=== PATIENT | female | born 1975 | race Caucasian/White ===

== ENCOUNTER 2018-01-11 14:07 | Emergency (ER) | payer BC, MEDICAID ==
[~2018-01-11] VITALS: Ht 152.4 cm; Wt 81.0 kg
[~2018-01-11 14:07] MED LIST: ESCI20TA29 PO; MUPI15CR TP; NORCO10T PO; QUET-1 PO; [UNRECOGNIZED DRUG - CODE] PO
[2018-01-11] MEDS ORDERED: CLIN150C2 PO (14:51)
[2018-01-11 18:04] VITALS: BP 131/81
== END 2018-01-11 15:20 | disposition home or self-care (01) ==
LOC: ER 14:07
DX: K11.20 Sialoadenitis, unspecified (principal); Z88.0 Allergy status to penicillin; Z88.5 Allergy status to narcotic agent; Z79.899 Other long term (current) drug therapy
CPT/HCPCS: 99283

== ENCOUNTER 2020-12-08 12:39 | Emergency (ER) | payer OTHER, BC, MEDICAID ==
[~2020-12-08] VITALS: Ht 152.4 cm; Wt 82.5 kg
[2020-12-08 13:16] VITALS: BP 141/83
[2020-12-08] MEDS ORDERED: orphenadrine citrate 60mg/2ml inj. IM ONE (13:40)
[2020-12-08] MEDS ORDERED: ketorolac tromethamine 15mg/ml inj. IM ONE (13:40)
[2020-12-08] MEDS ORDERED: NAPR-56 PO (14:40)
[2020-12-08] MEDS ORDERED: METH-360 PO (14:40)
== END 2020-12-08 15:26 | disposition home or self-care (01) ==
LOC: ER 12:39
DX: S16.1XXA Strain of muscle, fascia and tendon at neck level, initial encounter (principal); S39.012A Strain of muscle, fascia and tendon of lower back, initial encounter; M25.551 Pain in right hip; Z88.0 Allergy status to penicillin; Z88.5 Allergy status to narcotic agent; Z79.2 Long term (current) use of antibiotics; Z79.899 Other long term (current) drug therapy; V89.2XXA Person injured in unspecified motor-vehicle accident, traffic, initial encounter; Y93.89 Activity, other specified; Y92.89 Other specified places as the place of occurrence of the external cause; Y99.8 Other external cause status
CPT/HCPCS: 72040; 96372; 99284; J1885; J2360

== ENCOUNTER 2021-10-25 12:06 | Emergency (ER) | payer BC, MEDICAID ==
[~2021-10-25] VITALS: Ht 152.4 cm; Wt 79.5 kg
[~2021-10-25 12:06] MED LIST changes: +METH-360 PO
[2021-10-25 12:36] VITALS: BP 106/70
[2021-10-25 13:18] LABS: BASOPHILS % (AUTO) 0.8 % (0-1); EOSINOPHILS # (AUTO) 0.1 X10'3 (0-0.9); EOSINOPHILS % (AUTO) 1.4 % (0-6); HEMATOCRIT 43.1 % (35.0-45.0); HEMOGLOBIN 14.4 g/dl (12.0-16.0); LYMPHOCYTES % (AUTO) 33.3 % (21-51); MEAN CORPUSCULAR HEMOGLOBIN 30.5 PG (27.0-31.0); MEAN CORPUSCULAR HGB CONC 33.5 g/dL (33.0-36.5); MEAN CORPUSCULAR VOLUME 91.2 FL (78-98); MEAN PLATELET VOLUME 8.2 FL (7.4-10.4); MONOCYTES # (AUTO) 0.4 X10'3 (0-0.9); MONOCYTES % (AUTO) 7.2 % (2-12); NEUTROPHILS # (AUTO) 3.4 X10'3 (1.8-7.7); NEUTROPHILS % (AUTO) 57.3 % (42-75); PLATELET COUNT 276 X10'3 (140-440); RED BLOOD COUNT 4.73 X10'6 (4.20-5.60); RED CELL DISTRIBUTION WIDTH 12.8 % (11.5-14.5); WHITE BLOOD COUNT 5.9 X10'3 (4.5-11.0)
[2021-10-25 15:00] LABS: ALANINE AMINOTRANSFERASE 19 U/L (12-78); ALBUMIN 3.4 G/DL (3.4-5.0); ALBUMIN/GLOBULIN RATIO 0.9 (1.1-1.5); ALKALINE PHOSPHATASE 79 IU/L (46-116); ANION GAP 15 (8-16); ASPARTATE AMINO TRANSFERASE 15 U/L (10-37); BILIRUBIN,TOTAL 0.6 MG/DL (0.1-1.0); BLOOD UREA NITROGEN 18 MG/DL (7-18); BUN/CREATININE RATIO 19.6 (6.6-38.0); CALCIUM 8.9 MG/DL (8.5-10.1); CHLORIDE 106 MMOL/L (99-107); CREATININE 0.92 MG/DL (0.40-0.90); GLUCOSE 93 MG/DL (70-104); SODIUM 141 MMOL/L (135-145); TOTAL CARBON DIOXIDE 20.3 MMOL/L (24-32); TOTAL PROTEIN 7.1 G/DL (6.4-8.2); eGFR 66 ML/MIN
[2021-10-25 15:09] LABS: C-REACTIVE PROTEIN 0.38 MG/DL (0.0-0.5)
[2021-10-25] MEDS ORDERED: PRED10TA23 PO (16:52)
[2021-10-25] MEDS ORDERED: ketorolac trometh inj. 60 MG/2 ML VIAL IM ONE (16:55)
[2021-10-25] MEDS ORDERED: predniSONE 20 mg tablet PO ONE (16:55)
== END 2021-10-25 17:01 | disposition home or self-care (01) ==
LOC: ER 12:11
DX: M25.50 Pain in unspecified joint (principal); Z88.0 Allergy status to penicillin; Z88.5 Allergy status to narcotic agent; Z79.899 Other long term (current) drug therapy
CPT/HCPCS: 36415; 80053; 84443; 84550; 85025; 85651; 86140; 96372; 99283; J1885; J7512

== ENCOUNTER 2021-11-14 14:59 | Inpatient (IN) | payer BC, MEDICAID ==
[~2021-11-14] VITALS: Ht 152.4 cm; Wt 84.3 kg
[~2021-11-14 14:59] MED LIST changes: +PRED10TA23 PO
[2021-11-14 15:58] LABS: BASOPHILS # (AUTO) 0.1 X10'3 (0-0.2); BASOPHILS % (AUTO) 0.8 % (0-1); EOSINOPHILS # (AUTO) 0.1 X10'3 (0-0.9); EOSINOPHILS % (AUTO) 2.2 % (0-6); LYMPHOCYTES # (AUTO) 1.7 X10'3 (1.1-4.8); LYMPHOCYTES % (AUTO) 27.3 % (21-51); MEAN CORPUSCULAR HEMOGLOBIN 30.8 PG (27.0-31.0); MEAN CORPUSCULAR HGB CONC 33.4 g/dL (33.0-36.5); MEAN CORPUSCULAR VOLUME 92.1 FL (78-98); MEAN PLATELET VOLUME 7.5 FL (7.4-10.4); MONOCYTES # (AUTO) 0.5 X10'3 (0-0.9); MONOCYTES % (AUTO) 7.8 % (2-12); NEUTROPHILS % (AUTO) 61.9 % (42-75); PLATELET COUNT 232 X10'3 (140-440); RED BLOOD COUNT 4.56 X10'6 (4.20-5.60); RED CELL DISTRIBUTION WIDTH 13.6 % (11.5-14.5); WHITE BLOOD COUNT 6.4 X10'3 (4.5-11.0)
[2021-11-14 16:18] LABS: ALANINE AMINOTRANSFERASE 30 U/L (12-78); ALBUMIN 3.2 G/DL (3.4-5.0); ALBUMIN/GLOBULIN RATIO 0.9 (1.1-1.5); ALKALINE PHOSPHATASE 76 IU/L (46-116); ANION GAP 13 (8-16); ASPARTATE AMINO TRANSFERASE 15 U/L (10-37); BILIRUBIN,TOTAL 0.6 MG/DL (0.1-1.0); BLOOD UREA NITROGEN 27 MG/DL (7-18); CALCIUM 8.5 MG/DL (8.5-10.1); CHLORIDE 107 MMOL/L (99-107); CREATININE 0.87 MG/DL (0.40-0.90); D-DIMER 4.85 MG/L FEU (0-0.50); GLUCOSE 119 MG/DL (70-104); POTASSIUM 3.7 MMOL/L (3.5-5.1); SODIUM 142 MMOL/L (135-145); TOTAL PROTEIN 6.7 G/DL (6.4-8.2); eGFR 70 ML/MIN
[2021-11-14] MEDS ORDERED: iohexol 350MG/ML 100ml bottle IV ONE (17:49)
[2021-11-14] MEDS ORDERED: enoxaparin 100mg/ml syringe SUBCUT ONE (19:20)
[2021-11-14] MEDS ORDERED: ondansetron 4mg rapidly disintigrating tab PO PRN (19:45)
[2021-11-14] MEDS ORDERED: acetaminophen 650mg rectal suppository RC PRN (19:45)
[2021-11-14] MEDS ORDERED: diphenhydrAMINE 25mg capsule PO PRN (19:45)
[2021-11-14] MEDS ORDERED: bisacodyl 10mg suppository rectal RC PRN (19:45)
[2021-11-14] MEDS ORDERED: diphenhydrAMINE 50 mg/ml inj IV PRN (19:45)
[2021-11-14] MEDS ORDERED: ondansetron/PF 4mg/2ml inj IV PRN (19:45)
[2021-11-14] MEDS ORDERED: magnesium hydroxide 30ml (MOM) UD suspension PO PRN (19:45)
[2021-11-14] MEDS ORDERED: mag hydrox/Alum hydrox/simeth 30ml oral suspension PO PRN (19:45)
[2021-11-14] MEDS: docusate sod 100mg capsule PO SCH (20:00)
[2021-11-14] MEDS ORDERED: VARE1TAB24 PO (20:07)
[2021-11-14] MEDS ORDERED: CYCL-1 PO (20:07)
[2021-11-14] MEDS ORDERED: CITA40TA30 PO (20:07)
[2021-11-14] MEDS ORDERED: PANT40TA54 PO (20:07)
[2021-11-14] MEDS ORDERED: PRAZ5CAP2 PO (20:07)
[2021-11-14] MEDS ORDERED: LEVO1TBD13 PO (20:07)
[2021-11-14 20:10] LABS: HEMOGLOBIN A1C 5.9 % (4.5-6.2)
[2021-11-14 20:32] LABS: MAGNESIUM 2.2 MG/DL (1.5-2.4); PHOSPHORUS 2.5 MG/DL (2.3-4.5)
[2021-11-14] MEDS ORDERED: temazepam 15mg capsule PO PRN (21:00)
[2021-11-14] MEDS: normal saline 1000ml 1,000 ML IV SCH (23:52)
[2021-11-14] MEDS: cyclobenzaprine 10mg tablet PO SCH (23:52)
[2021-11-14] MEDS: enoxaparin 80mg/0.8ml syringe SUBCUT SCH (23:58)
[2021-11-15 00:45] LABS: URINE AMPHETAMINE SCREEN NEGATIVE (Neg); URINE BARBITUATE SCREEN NEGATIVE (Neg); URINE BENZODIAZEPINES SCREEN NEGATIVE (Neg); URINE CANNABINOID SCREEN POSITIVE (Neg); URINE COCAINE SCREEN NEGATIVE (Neg); URINE METHADONE SCREEN NEGATIVE (Neg); URINE OPIATE SCREEN NEGATIVE (Neg); URINE PHENCYCLIDINE SCREEN NEGATIVE (Neg)
[2021-11-15] MEDS ORDERED: HYDROcodone/acetaminophen 5mg/325mg tablet PO ONE (02:30)
[2021-11-15] MEDS: normal saline 1000ml 1,000 ML IV SCH ×2 (05:45→15:45)
[2021-11-15] MEDS ORDERED: pantoprazole 40mg Tablet.DR PO SCH (07:30)
[2021-11-15] MEDS: pantoprazole 40mg Tablet.DR PO SCH ×2 (08:00→20:02)
[2021-11-15] MEDS: prazosin 5mg capsule PO SCH ×2 (08:00→20:02)
[2021-11-15] MEDS ORDERED: varenicline tartrate 1mg tablet PO SCH (08:00)
[2021-11-15] MEDS: docusate sod 100mg capsule PO SCH ×2 (08:24→20:00)
[2021-11-15] MEDS: cyclobenzaprine 10mg tablet PO SCH ×3 (08:24→20:02)
[2021-11-15] MEDS: citalopram 20mg tablet PO SCH (08:24)
[2021-11-15] MEDS: enoxaparin 80mg/0.8ml syringe SUBCUT SCH ×2 (08:24→20:03)
[2021-11-15 08:27] LABS: BASOPHILS # (AUTO) 0.1 X10'3 (0-0.2); BASOPHILS % (AUTO) 1.1 % (0-1); EOSINOPHILS # (AUTO) 0.1 X10'3 (0-0.9); EOSINOPHILS % (AUTO) 2.4 % (0-6); HEMATOCRIT 41.7 % (35.0-45.0); HEMOGLOBIN 13.7 g/dl (12.0-16.0); LYMPHOCYTES # (AUTO) 2.2 X10'3 (1.1-4.8); LYMPHOCYTES % (AUTO) 39.2 % (21-51); MEAN CORPUSCULAR HEMOGLOBIN 30.9 PG (27.0-31.0); MEAN CORPUSCULAR HGB CONC 32.8 g/dL (33.0-36.5); MEAN CORPUSCULAR VOLUME 94.2 FL (78-98); MEAN PLATELET VOLUME 7.6 FL (7.4-10.4); MONOCYTES # (AUTO) 0.6 X10'3 (0-0.9); MONOCYTES % (AUTO) 10.5 % (2-12); NEUTROPHILS # (AUTO) 2.6 X10'3 (1.8-7.7); NEUTROPHILS % (AUTO) 46.8 % (42-75); PLATELET COUNT 186 X10'3 (140-440); RED BLOOD COUNT 4.43 X10'6 (4.20-5.60); WHITE BLOOD COUNT 5.5 X10'3 (4.5-11.0)
[2021-11-15] MEDS ORDERED: nicotine 14mg patch - 24hr TD ONE (08:35)
[2021-11-15 09:33] LABS: ALBUMIN 2.8 G/DL (3.4-5.0); ALBUMIN/GLOBULIN RATIO 0.8 (1.1-1.5); ALKALINE PHOSPHATASE 67 IU/L (46-116); ANION GAP 11 (8-16); ASPARTATE AMINO TRANSFERASE 18 U/L (10-37); BILIRUBIN,TOTAL 0.8 MG/DL (0.1-1.0); BLOOD UREA NITROGEN 21 MG/DL (7-18); BUN/CREATININE RATIO 28.8 (6.6-38.0); CALCIUM 8.3 MG/DL (8.5-10.1); CHLORIDE 108 MMOL/L (99-107); CHOL/HDL RATIO 4.9 (0.00-4.99); CHOLESTEROL 222 MG/DL (0-200); CREATININE 0.73 MG/DL (0.40-0.90); GLUCOSE 82 MG/DL (70-104); HDL CHOLESTEROL 45 MG/DL (35-60); LDL CHOLESTEROL 130 MG/DL (50-100); POTASSIUM 3.9 MMOL/L (3.5-5.1); SODIUM 140 MMOL/L (135-145); TOTAL CARBON DIOXIDE 20.6 MMOL/L (24-32); TOTAL PROTEIN 6.1 G/DL (6.4-8.2); TRIGLYCERIDES 240 MG/DL (20-135); eGFR 86 ML/MIN
[2021-11-15 13:15] VITALS: BP 107/66
[2021-11-15 13:53] LABS: ALANINE AMINOTRANSFERASE 22 U/L (12-78)
[2021-11-15] MEDS: acetaminophen 325mg tablet PO PRN (14:40)
[2021-11-15] MEDS: HYDROmorphone inj. 0.5 MG/0.5 ML DISP.SYRIN IV PRN ×2 (14:42→22:44)
[2021-11-15 15:00] VITALS: BP 117/63
[2021-11-15 18:00] VITALS: BP 127/80
--- NOTE | 2021-11-15 18:32 | NUR ---
Problems reprioritized. Patient report given Cristian RN, questions answered & plan of care reviewed with Cristian ARCHER.
[2021-11-15 22:00] VITALS: BP 135/74
[2021-11-16] MEDS: normal saline 1000ml 1,000 ML IV SCH ×2 (01:38→09:37)
[2021-11-16 02:00] VITALS: BP 103/55
[2021-11-16 06:00] VITALS: BP 153/55
[2021-11-16] MEDS: prazosin 5mg capsule PO SCH (08:00)
[2021-11-16] MEDS: docusate sod 100mg capsule PO SCH (08:00)
[2021-11-16] MEDS ORDERED: nicotine 14mg patch - 24hr TD SCH (08:00)
[2021-11-16] MEDS: cyclobenzaprine 10mg tablet PO SCH ×2 (08:05→13:33)
[2021-11-16] MEDS: enoxaparin 80mg/0.8ml syringe SUBCUT SCH (08:05)
[2021-11-16] MEDS: pantoprazole 40mg Tablet.DR PO SCH (08:05)
[2021-11-16] MEDS: citalopram 20mg tablet PO SCH (08:05)
[2021-11-16 08:09] LABS: BASOPHILS % (AUTO) 0.7 % (0-1); EOSINOPHILS # (AUTO) 0.1 X10'3 (0-0.9); EOSINOPHILS % (AUTO) 3.1 % (0-6); HEMATOCRIT 37.7 % (35.0-45.0); HEMOGLOBIN 12.7 g/dl (12.0-16.0); LYMPHOCYTES # (AUTO) 1.6 X10'3 (1.1-4.8); LYMPHOCYTES % (AUTO) 37.1 % (21-51); MEAN CORPUSCULAR HEMOGLOBIN 31.1 PG (27.0-31.0); MEAN CORPUSCULAR HGB CONC 33.8 g/dL (33.0-36.5); MEAN CORPUSCULAR VOLUME 92.1 FL (78-98); MONOCYTES # (AUTO) 0.4 X10'3 (0-0.9); MONOCYTES % (AUTO) 10.1 % (2-12); NEUTROPHILS # (AUTO) 2.1 X10'3 (1.8-7.7); PLATELET COUNT 186 X10'3 (140-440); RED BLOOD COUNT 4.09 X10'6 (4.20-5.60); RED CELL DISTRIBUTION WIDTH 13.1 % (11.5-14.5); WHITE BLOOD COUNT 4.2 X10'3 (4.5-11.0)
[2021-11-16 08:22] LABS: ALANINE AMINOTRANSFERASE 22 U/L (12-78); ALBUMIN 2.6 G/DL (3.4-5.0); ALBUMIN/GLOBULIN RATIO 0.8 (1.1-1.5); ALKALINE PHOSPHATASE 65 IU/L (46-116); ANION GAP 9 (8-16); ASPARTATE AMINO TRANSFERASE 17 U/L (10-37); BILIRUBIN,TOTAL 1.3 MG/DL (0.1-1.0); BLOOD UREA NITROGEN 15 MG/DL (7-18); BUN/CREATININE RATIO 20.8 (6.6-38.0); CALCIUM 8.2 MG/DL (8.5-10.1); CHLORIDE 112 MMOL/L (99-107); CREATININE 0.72 MG/DL (0.40-0.90); GLUCOSE 99 MG/DL (70-104); POTASSIUM 3.8 MMOL/L (3.5-5.1); SODIUM 143 MMOL/L (135-145); TOTAL CARBON DIOXIDE 21.7 MMOL/L (24-32); TOTAL PROTEIN 5.9 G/DL (6.4-8.2); eGFR 87 ML/MIN
[2021-11-16] MEDS ORDERED: prazosin 5mg capsule PO SCH (10:50)
[2021-11-16 11:00] VITALS: BP 119/77
[2021-11-16] MEDS ORDERED: APIX5TAB3 PO (12:16)
[2021-11-16] MEDS: acetaminophen 325mg tablet PO PRN (13:37)
--- NOTE | 2021-11-16 16:11 | NUR ---
Patient received at 1300 and d/c to go home with d/c instructions/directions printed and verbally given to patient. She verbalizes understanding and denied having any question for science writer. Patient had removed IV line and cardiac monitor technician prior to d/c. 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 She was medicated for headache with good result prior to d/c. Patient was accompanied to the lobby via wheel chair by PCT with all her belongings with no distress noted.
== END 2021-11-16 15:29 | disposition home or self-care (01) | DRG 299 ==
LOC: ER 15:00 → ED HOLD 19:51 → PCU 3S 11-15 12:46
PROVIDERS: ADMIT Family Medicine; ATTEND Family Medicine
PROC: B32T1ZZ Computerized Tomography (CT Scan) of Left Pulmonary Artery using Low Osmolar Contrast (ICD-10-PCS; principal; 2021-11-14)
PROC: B3201ZZ Computerized Tomography (CT Scan) of Thoracic Aorta using Low Osmolar Contrast (ICD-10-PCS; 2021-11-14)
PROC: B32S1ZZ Computerized Tomography (CT Scan) of Right Pulmonary Artery using Low Osmolar Contrast (ICD-10-PCS; 2021-11-14)
DX: I82.441 Acute embolism and thrombosis of right tibial vein (principal); I26.93 Single subsegmental thrombotic pulmonary embolism without acute cor pulmonale; E87.3 Alkalosis; N17.9 Acute kidney failure, unspecified; E78.5 Hyperlipidemia, unspecified; R00.0 Tachycardia, unspecified; R06.82 Tachypnea, not elsewhere classified; R26.2 Difficulty in walking, not elsewhere classified; F12.10 Cannabis abuse, uncomplicated; M25.50 Pain in unspecified joint; G89.4 Chronic pain syndrome; I10 Essential (primary) hypertension; Z79.891 Long term (current) use of opiate analgesic; Z83.2 Family history of diseases of the blood and blood-forming organs and certain disorders involving the immune mechanism; Z87.891 Personal history of nicotine dependence; Z98.82 Breast implant status; Z88.0 Allergy status to penicillin; Z88.5 Allergy status to narcotic agent; Z79.899 Other long term (current) drug therapy; Z71.51 Drug abuse counseling and surveillance of drug abuser
CPT/HCPCS: 36415; 71275; 80053; 80061; 80305; 83036; 83735; 83880; 84100; 85025; 85379; 85610; 87081; 93306; 93970; 99285; G0378; J1170; J1650; J7030; Q9967

== ENCOUNTER 2021-11-28 18:37 | Emergency (ER) | payer BC, MEDICAID ==
[~2021-11-28] VITALS: Ht 152.4 cm; Wt 84.0 kg
[~2021-11-28 18:37] MED LIST changes: +APIX5TAB3 PO; +CITA40TA30 PO; +CYCL-1 PO; -ESCI20TA29 PO; -METH-360 PO; -MUPI15CR TP; -NORCO10T PO; +PANT40TA54 PO; +PRAZ5CAP2 PO; -PRED10TA23 PO; -QUET-1 PO; +VARE1TAB24 PO; -[UNRECOGNIZED DRUG - CODE] PO
[2021-11-28 22:32] LABS: MEAN PLATELET VOLUME 7.6 FL (7.4-10.4)
[2021-11-28 22:34] LABS: BASOPHILS % (AUTO) 0.6 % (0-1); EOSINOPHILS # (AUTO) 0.1 X10'3 (0-0.9); EOSINOPHILS % (AUTO) 2.2 % (0-6); HEMATOCRIT 39.4 % (35.0-45.0); HEMOGLOBIN 13.4 g/dl (12.0-16.0); LYMPHOCYTES % (AUTO) 36.9 % (21-51); MEAN CORPUSCULAR HEMOGLOBIN 30.8 PG (27.0-31.0); MEAN CORPUSCULAR HGB CONC 34.1 g/dL (33.0-36.5); MEAN CORPUSCULAR VOLUME 90.4 FL (78-98); MONOCYTES # (AUTO) 0.5 X10'3 (0-0.9); MONOCYTES % (AUTO) 8.6 % (2-12); NEUTROPHILS # (AUTO) 2.8 X10'3 (1.8-7.7); NEUTROPHILS % (AUTO) 51.7 % (42-75); PLATELET COUNT 319 X10'3 (140-440); RED BLOOD COUNT 4.36 X10'6 (4.20-5.60); RED CELL DISTRIBUTION WIDTH 13.1 % (11.5-14.5); WHITE BLOOD COUNT 5.5 X10'3 (4.5-11.0)
[2021-11-28 22:45] LABS: ALANINE AMINOTRANSFERASE 61 U/L (12-78); ALBUMIN 3.8 G/DL (3.4-5.0); ALBUMIN/GLOBULIN RATIO 1.2 (1.1-1.5); ALKALINE PHOSPHATASE 84 IU/L (46-116); ANION GAP 8 (8-16); ASPARTATE AMINO TRANSFERASE 30 U/L (10-37); BILIRUBIN,TOTAL 0.5 MG/DL (0.1-1.0); BLOOD UREA NITROGEN 11 MG/DL (7-18); BUN/CREATININE RATIO 13.1 (6.6-38.0); CALCIUM 9.1 MG/DL (8.5-10.1); CHLORIDE 105 MMOL/L (99-107); CREATININE 0.84 MG/DL (0.40-0.90); GLUCOSE 105 MG/DL (70-104); POTASSIUM 3.8 MMOL/L (3.5-5.1); SODIUM 140 MMOL/L (135-145); TOTAL CARBON DIOXIDE 26.6 MMOL/L (24-32); TOTAL PROTEIN 7.1 G/DL (6.4-8.2); eGFR 73 ML/MIN
[2021-11-29 01:40] VITALS: BP 137/90
== END 2021-11-29 02:28 | disposition home or self-care (01) ==
LOC: ER 18:39
DX: R06.02 Shortness of breath (principal); I26.99 Other pulmonary embolism without acute cor pulmonale; I82.401 Acute embolism and thrombosis of unspecified deep veins of right lower extremity; F17.200 Nicotine dependence, unspecified, uncomplicated; Z88.0 Allergy status to penicillin; Z88.5 Allergy status to narcotic agent; Z79.899 Other long term (current) drug therapy
CPT/HCPCS: 36415; 71045; 80053; 83880; 84484; 85025; 93005; 99285

== ENCOUNTER 2022-04-05 15:19 | Emergency (ER) | payer BC, MEDICAID ==
[~2022-04-05] VITALS: Ht 152.4 cm; Wt 84.1 kg
[2022-04-05 16:51] LABS: BASOPHILS % (AUTO) 0.4 % (0-1); EOSINOPHILS % (AUTO) 0.8 % (0-6); HEMATOCRIT 42.6 % (35.0-45.0); HEMOGLOBIN 14.3 g/dl (12.0-16.0); LYMPHOCYTES # (AUTO) 1.7 X10'3 (1.1-4.8); LYMPHOCYTES % (AUTO) 27.6 % (21-51); MEAN CORPUSCULAR HEMOGLOBIN 30.6 PG (27.0-31.0); MEAN CORPUSCULAR HGB CONC 33.5 g/dL (33.0-36.5); MEAN CORPUSCULAR VOLUME 91.2 FL (78-98); MEAN PLATELET VOLUME 9.5 FL (7.4-10.4); MONOCYTES # (AUTO) 0.6 X10'3 (0-0.9); MONOCYTES % (AUTO) 9.6 % (2-12); NEUTROPHILS # (AUTO) 3.7 X10'3 (1.8-7.7); NEUTROPHILS % (AUTO) 61.6 % (42-75); PLATELET COUNT 215 X10'3 (140-440); RED BLOOD COUNT 4.67 X10'6 (4.20-5.60); RED CELL DISTRIBUTION WIDTH 13.5 % (11.5-14.5); WHITE BLOOD COUNT 6.1 X10'3 (4.5-11.0)
[2022-04-05 17:09] LABS: ALANINE AMINOTRANSFERASE 39 U/L (12-78); ALBUMIN 3.9 G/DL (3.4-5.0); ALBUMIN/GLOBULIN RATIO 1.2 (1.1-1.5); ANION GAP 8 (8-16); ASPARTATE AMINO TRANSFERASE 23 U/L (10-37); BILIRUBIN,TOTAL 0.6 MG/DL (0.1-1.0); BLOOD UREA NITROGEN 17 MG/DL (7-18); BUN/CREATININE RATIO 17.7 (6.6-38.0); CALCIUM 9.4 MG/DL (8.5-10.1); CHLORIDE 106 MMOL/L (99-107); CREATININE 0.96 MG/DL (0.40-0.90); GLUCOSE 96 MG/DL (70-104); POTASSIUM 4.1 MMOL/L (3.5-5.1); SODIUM 141 MMOL/L (135-145); TOTAL CARBON DIOXIDE 26.9 MMOL/L (24-32); TOTAL PROTEIN 7.2 G/DL (6.4-8.2); eGFR 62 ML/MIN
[2022-04-05 17:10] LABS: ALKALINE PHOSPHATASE 94 IU/L (46-116)
[2022-04-05] MEDS ORDERED: LIDOcaine 5% patch TP STA (18:59)
[2022-04-05] MEDS ORDERED: orphenadrine citrate 60mg/2ml inj. IM ONE (19:00)
[2022-04-05] MEDS ORDERED: CYCL5TAB PO (19:09)
[2022-04-05] MEDS ORDERED: CYCL5TAB14 PO (19:25)
[2022-04-05 19:40] VITALS: BP 122/78
== END 2022-04-05 19:42 | disposition home or self-care (01) ==
LOC: ER 15:20
DX: R07.9 Chest pain, unspecified (principal); G89.29 Other chronic pain; M54.9 Dorsalgia, unspecified; Z88.0 Allergy status to penicillin
CPT/HCPCS: 36415; 71045; 80053; 83880; 84484; 85025; 93005; 96372; 99285; J2360

== ENCOUNTER 2022-08-06 21:37 | Emergency (ER) | payer OTHER, MEDICAID ==
[~2022-08-06] VITALS: Ht 152.4 cm; Wt 76.6 kg
[~2022-08-06 21:37] MED LIST changes: +CYCL5TAB PO; +CYCL5TAB14 PO
[2022-08-06 22:16] LABS: BASOPHILS % (AUTO) 0.6 % (0-1); EOSINOPHILS # (AUTO) 0.1 X10'3 (0-0.9); EOSINOPHILS % (AUTO) 1.3 % (0-6); HEMATOCRIT 40.3 % (35.0-45.0); HEMOGLOBIN 14.1 g/dl (12.0-16.0); LYMPHOCYTES # (AUTO) 2.7 X10'3 (1.1-4.8); LYMPHOCYTES % (AUTO) 35.8 % (21-51); MEAN CORPUSCULAR HEMOGLOBIN 32.5 PG (27.0-31.0); MEAN PLATELET VOLUME 8.9 FL (7.4-10.4); MONOCYTES # (AUTO) 0.7 X10'3 (0-0.9); MONOCYTES % (AUTO) 8.8 % (2-12); NEUTROPHILS % (AUTO) 53.5 % (42-75); PLATELET COUNT 216 X10'3 (140-440); RED BLOOD COUNT 4.33 X10'6 (4.20-5.60); WHITE BLOOD COUNT 7.5 X10'3 (4.5-11.0)
[2022-08-06 22:32] LABS: ALANINE AMINOTRANSFERASE 37 U/L (12-78); ALBUMIN 3.8 G/DL (3.4-5.0); ALBUMIN/GLOBULIN RATIO 1.2 (1.1-1.5); ALKALINE PHOSPHATASE 98 IU/L (46-116); ANION GAP 11 (8-16); ASPARTATE AMINO TRANSFERASE 20 U/L (10-37); BILIRUBIN,TOTAL 0.6 MG/DL (0.1-1.0); BLOOD UREA NITROGEN 18 MG/DL (7-18); BUN/CREATININE RATIO 22.5 (6.6-38.0); CALCIUM 9.2 MG/DL (8.5-10.1); CHLORIDE 107 MMOL/L (99-107); GLUCOSE 102 MG/DL (70-104); POTASSIUM 3.1 MMOL/L (3.5-5.1); SODIUM 142 MMOL/L (135-145); eGFR 77 ML/MIN
[2022-08-07] MEDS ORDERED: ondansetron 4mg rapidly disintigrating tab PO STA (02:49)
[2022-08-07] MEDS ORDERED: POTASSIUM BICARB 20meq eff tab 20 MEQ TABLET.EFF PO ONE (02:50)
[2022-08-07 03:13] LABS: URINE HCG NEGATIVE (NEG)
[2022-08-07 03:20] LABS: CLARITY,URINE CLEAR (Clear); COLOR,URINE YELLOW (Yellow); GLUCOSE, URINE NEGATIVE (Neg); KETONES,URINE TRACE mg/dl (Neg); LEUKOCYTE ESTERASE ,URINE NEGATIVE (Neg); NITRITES, URINE NEGATIVE (Neg); OCCULT BLOOD,URINE MODERATE (Neg); PH,URINE 5.5 (4.8-8.0); PROTEIN,URINE NEGATIVE (Neg); UROBILINOGEN,URINE 0.2 E.U/dL (0.2-1.0)
[2022-08-07 03:30] LABS: UA COLLECTION TYPE VOIDED
[2022-08-07 03:32] LABS: WBC,URINE 0-4 /HPF (0-4)
[2022-08-07 03:33] LABS: BACTERIA,URINE FEW /HPF (Neg); MUCUS STRANDS NONE SEEN /LPF (Neg); RBC,URINE 20-50 /HPF (0-2); SQUAMOUS EPITHELIAL CELL,UR FEW /LPF (FEW)
[2022-08-07 03:36] VITALS: BP 111/71
== END 2022-08-07 03:37 | disposition home or self-care (01) ==
LOC: ER 21:38
DX: R53.83 Other fatigue (principal); G89.29 Other chronic pain; M54.9 Dorsalgia, unspecified; Z88.0 Allergy status to penicillin; Z88.5 Allergy status to narcotic agent; Z79.899 Other long term (current) drug therapy
CPT/HCPCS: 36415; 71045; 80053; 81001; 81025; 83880; 84443; 84484; 85025; 93005; 99285

== ENCOUNTER 2022-09-02 23:50 | Emergency (ER) | payer OTHER, MEDICAID ==
[~2022-09-02] VITALS: Ht 152.4 cm; Wt 74.5 kg
[2022-09-03 01:51] LABS: ALANINE AMINOTRANSFERASE 33 U/L (12-78); ALBUMIN 4.2 G/DL (3.4-5.0); ALBUMIN/GLOBULIN RATIO 1.1 (1.1-1.5); ALKALINE PHOSPHATASE 104 IU/L (46-116); ANION GAP 10 (8-16); ASPARTATE AMINO TRANSFERASE 25 U/L (10-37); BILIRUBIN,TOTAL 0.6 MG/DL (0.1-1.0); BLOOD UREA NITROGEN 18 MG/DL (7-18); BUN/CREATININE RATIO 23.7 (6.6-38.0); CALCIUM 9.6 MG/DL (8.5-10.1); CHLORIDE 106 MMOL/L (99-107); CREATININE 0.76 MG/DL (0.40-0.90); GLUCOSE 85 MG/DL (70-104); POTASSIUM 3.4 MMOL/L (3.5-5.1); SODIUM 143 MMOL/L (135-145); TOTAL CARBON DIOXIDE 27.3 MMOL/L (24-32); TOTAL PROTEIN 8.2 G/DL (6.4-8.2); eGFR 82 ML/MIN
[2022-09-03 01:57] LABS: BASOPHILS # (AUTO) 0.1 X10'3 (0-0.2); BASOPHILS % (AUTO) 0.9 % (0-1); EOSINOPHILS # (AUTO) 0.2 X10'3 (0-0.9); EOSINOPHILS % (AUTO) 1.9 % (0-6); HEMATOCRIT 43.6 % (35.0-45.0); LYMPHOCYTES # (AUTO) 2.9 X10'3 (1.1-4.8); LYMPHOCYTES % (AUTO) 35.9 % (21-51); MEAN CORPUSCULAR HGB CONC 34.4 g/dL (33.0-36.5); MEAN CORPUSCULAR VOLUME 92.8 FL (78-98); MEAN PLATELET VOLUME 9.6 FL (7.4-10.4); MONOCYTES # (AUTO) 0.8 X10'3 (0-0.9); MONOCYTES % (AUTO) 10.1 % (2-12); NEUTROPHILS # (AUTO) 4.1 X10'3 (1.8-7.7); NEUTROPHILS % (AUTO) 51.2 % (42-75); PLATELET COUNT 233 X10'3 (140-440); RED CELL DISTRIBUTION WIDTH 13.1 % (11.5-14.5); WHITE BLOOD COUNT 7.9 X10'3 (4.5-11.0)
--- NOTE | 2022-09-03 03:30 | NUR ---
VASCULAR VIDEOTAPE EDITOR WITH PATIENT
[2022-09-03 04:09] LABS: CREATINE KINASE 137 U/L (26-192)
[2022-09-03 05:12] LABS: CLARITY,URINE CLEAR (Clear); COLOR,URINE YELLOW (Yellow); GLUCOSE, URINE NEGATIVE (Neg); KETONES,URINE NEGATIVE (Neg); LEUKOCYTE ESTERASE ,URINE NEGATIVE (Neg); NITRITES, URINE NEGATIVE (Neg); OCCULT BLOOD,URINE NEGATIVE (Neg); PROTEIN,URINE NEGATIVE (Neg); UROBILINOGEN,URINE 0.2 E.U/dL (0.2-1.0)
[2022-09-03 05:13] LABS: UA COLLECTION TYPE CLN CATCH MIDSTREAM
[2022-09-03] MEDS ORDERED: POTASSIUM BICARB 20meq eff tab 20 MEQ TABLET.EFF PO ONE (05:35)
[2022-09-03] MEDS ORDERED: iohexol 350MG/ML 100ml bottle IV ONE (06:48)
[2022-09-03 09:00] VITALS: BP 123/83
== END 2022-09-03 08:45 | disposition home or self-care (01) ==
LOC: ER 23:51
DX: M79.605 Pain in left leg (principal); E87.6 Hypokalemia; G89.29 Other chronic pain; M54.9 Dorsalgia, unspecified; Z88.0 Allergy status to penicillin; Z88.5 Allergy status to narcotic agent
CPT/HCPCS: 36415; 71045; 71275; 80053; 81003; 82550; 83880; 84484; 85025; 93005; 93971; 99285; J3490; Q9967